=== PATIENT | female | born 1970 | race African-American/Black ===

== ENCOUNTER 2018-11-18 18:17 | Emergency (ER) | payer OTHER ==
[2018-11-18 18:26] VITALS: BP 130/73; PULSE 69; TEMP 98.1; BMI 24.5
--- NOTE | 2018-11-18 20:21 | PDOC ---
History of Present Illness - General Chief Complaint: Abscess Boil Stated Complaint: SWOLLEN ARM Time Seen by Provider: 11/18/18 19:24 History Source: Patient - History of Present Illness Initial Comments: 11/18/18 20:16 48 year old female c/o right axilla abscess and pain x 2-3 days. denies fever and chills. history of cystic abscess in the past, Past History - Past Medical History Allergies/Adverse Reactions: Allergies Allergy/AdvReac Type Severity Reaction Status Date / Time No Known Allergies Allergy Verified 11/18/18 18:26 Home Medications: Ambulatory Orders Unobtainable 11/18/18 COPD: No HTN: No - Immunization History Immunization Up to Date: No - Suicide/Smoking/Psychosocial Hx Smoking History: Never smoked Have you smoked in the past 12 months: No Information on smoking cessation initiated: No Hx Alcohol Use: No Drug/Substance Use Hx: No Review of Systems - Review of Systems Able to Perform ROS?: Yes Is the patient limited Arabic proficient: No Constitutional: No: Symptoms Reported, See HPI, Chills, Diaphoresis, Fever, Loss of Appetite, Malaise, Night Sweats, Weakness, Weight Stable, Unintentional Wgt. Loss, Unexplained wgt Loss, Other Integumentary: Yes: Other (abscess) *Physical Exam - Vital Signs Last Vital Signs Temp Pulse Resp BP Pulse Ox 98.1 F 69 18 130/73 100 11/18/18 18:24 11/18/18 18:24 11/18/18 18:24 11/18/18 18:24 11/18/18 18:24 - Physical Exam General Appearance: Yes: Appropriately Dressed Integumentary: positive: Normal Color, Other (fluctuant mass to right axilla. erythema at the site no streaking) Neurologic: positive: Fully Oriented, Alert Procedures - Incision and Drainage I&D Site: Right: Axilla (2 cm fluctuant mass) Betadine cleansed: Yes Anesthesia: 1% Lidocaine Blade Size: 11 Iodinated Packin/2 in Plain Packing: Yes Dressing: No Progress Note - Progress Note Progress Note: A: axilla abscess P: I&D *DC/Admit/Observation/Transfer Diagnosis at time of Disposition: Axillary abscess - Discharge Dispostion Disposition: HOME Condition at time of disposition: Stable - Referrals - Patient Instructions Printed Discharge Instructions: DI for Incision and Drainage of a Skin Abscess Additional Instructions: please return In 2 days to have packing removed. You may take ibuprofen for pain You may take warm showers and apply warm compress to the area. If the outside gauze gets soiled you may replace it. - Post Discharge Activity Forms/Work/School Notes: Back to Work
== END 2018-11-18 20:28 | disposition home or self-care (01) ==
LOC: JERFT 18:17
PROC: 0X940ZZ Drainage of Right Axilla, Open Approach (ICD-10-PCS; principal; 2018-11-18)
DX: L02.411 Cutaneous abscess of right axilla (principal)
CPT/HCPCS: 99281-25